=== PATIENT | male | born 1990 | race Two or more races ===

== ENCOUNTER 2019-10-31 05:21 | Emergency (ER) | payer OTHER ==
[~2019-10-31] VITALS: Ht 177.8 cm; Wt 148.3 kg
[2019-10-31] MEDS ORDERED: AVAPRO300 MG (05:59)
[2019-10-31] MEDS ORDERED: DICY20TA PO (11:46)
[2019-10-31] MEDS ORDERED: PEPCID AC20 MG PO (11:46)
== END 2019-10-31 12:09 | disposition home or self-care (01) ==
LOC: ER 05:21
DX: R10.11 Right upper quadrant pain (principal)

== ENCOUNTER 2019-11-07 08:58 | Emergency (ER) | payer OTHER ==
[~2019-11-07] VITALS: Ht 152.4 cm; Wt 136.5 kg
[~2019-11-07 08:58] MED LIST: AVAPRO300 MG; DICY20TA PO; PEPCID AC20 MG PO
== END 2019-11-07 15:32 | disposition home or self-care (01) ==
LOC: ER 08:58
DX: B34.8 Other viral infections of unspecified site (principal)

== ENCOUNTER 2020-03-31 11:36 | Outpatient (CLI) | payer OTHER | END 2020-03-31 13:41 | disposition home or self-care (01) | LOC: TOM 11:36 | PROVIDERS: ATTEND Specialist | DX: R10.84 Generalized abdominal pain (principal) ==

== ENCOUNTER 2020-04-07 08:58 | Outpatient (CLI) | payer OTHER | END 2020-04-07 09:00 | disposition home or self-care (01) | LOC: NUCLEAR 08:58 | PROVIDERS: ATTEND Specialist | DX: R10.11 Right upper quadrant pain (principal) | CPT/HCPCS: 78227; A9539; J2805 ==

== ENCOUNTER 2020-12-06 22:35 | Emergency (ER) | payer OTHER ==
[~2020-12-06] VITALS: Ht 177.8 cm; Wt 134.3 kg
[2020-12-07] MEDS ORDERED: NAPROXEN375 MG PO (06:01)
[2020-12-07] MEDS ORDERED: PEPCID AC20 MG PO (06:01)
[2020-12-07] MEDS ORDERED: SKELAXIN800 MG PO (06:01)
== END 2020-12-07 06:10 | disposition home or self-care (01) ==
LOC: ER 22:35
DX: R10.84 Generalized abdominal pain (principal); Z03.818 Encounter for observation for suspected exposure to other biological agents ruled out

== ENCOUNTER 2021-02-02 05:09 | Emergency (ER) | payer OTHER ==
[~2021-02-02] VITALS: Ht 177.8 cm; Wt 136.1 kg
[~2021-02-02 05:09] MED LIST changes: +NAPROXEN375 MG PO; +SKELAXIN800 MG PO
[2021-02-02] MEDS ORDERED: AMOX-CLAV 875-1 EAC1 PO (07:03)
[2021-02-02] MEDS ORDERED: KETO10TA2 PO (07:08)
== END 2021-02-02 07:25 ==
LOC: ER 05:09
DX: H66.92 Otitis media, unspecified, left ear (principal)

== ENCOUNTER 2021-08-24 13:14 | Outpatient (CLI) | payer OTHER ==
[~2021-08-24 13:14] MED LIST changes: +AMOX-CLAV 875-1 EAC1 PO; +KETO10TA2 PO
== END 2021-08-24 13:29 | disposition home or self-care (01) ==
LOC: RAD 13:14
PROVIDERS: ATTEND Internal Medicine Cardiovascular Disease
DX: M25.78 Osteophyte, vertebrae (principal); M12.88 Other specific arthropathies, not elsewhere classified, other specified site; M48.47XA Fatigue fracture of vertebra, lumbosacral region, initial encounter for fracture

== ENCOUNTER 2022-06-28 07:39 | Emergency (ER) | payer OTHER ==
[~2022-06-28] VITALS: Ht 177.8 cm; Wt 140.2 kg
[2022-06-28] MEDS ORDERED: AZOR 10-20 MG1 EACH (08:24)
[2022-06-28] MEDS ORDERED: HYDROCHLOROTHIA25 MG PO (08:25)
== END 2022-06-28 15:30 | disposition home or self-care (01) ==
LOC: ER 07:39
DX: R10.9 Unspecified abdominal pain (principal); Z88.0 Allergy status to penicillin; Z88.1 Allergy status to other antibiotic agents

== ENCOUNTER 2022-12-20 14:46 | Emergency (ER) | payer OTHER ==
[~2022-12-20] VITALS: Ht 175.3 cm; Wt 113.4 kg
[~2022-12-20 14:46] MED LIST changes: +AZOR 10-20 MG1 EACH; +HYDROCHLOROTHIA25 MG PO
[2022-12-20] MEDS ORDERED: DILTIAZEM ER180 M2 PO (15:23)
== END 2022-12-20 21:26 | disposition home or self-care (01) ==
LOC: ER 14:46
DX: R10.11 Right upper quadrant pain (principal); I10 Essential (primary) hypertension; Z88.0 Allergy status to penicillin; Z88.1 Allergy status to other antibiotic agents

== ENCOUNTER 2023-08-25 07:06 | Outpatient (CLI) | payer OTHER ==
[~2023-08-25 07:06] MED LIST changes: +CEFUROXIME500 MG PO; +CLARITIN10 MG PO; +DILTIAZEM ER180 M2 PO; +FLONASE16 GM NASAL
== END 2023-08-25 07:20 | disposition home or self-care (01) ==
LOC: TOM 07:06
PROVIDERS: ATTEND Specialist
DX: R59.0 Localized enlarged lymph nodes (principal); R10.9 Unspecified abdominal pain